=== PATIENT | female | born 2005 | race Caucasian/White ===

== ENCOUNTER → 2024-02-04 11:00 | Outpatient (BNVA) | payer BC, MEDICAID, SELFPAY | PROVIDERS: Family Provider Pediatrics Adolescent Medicine; PCP Pediatrics Adolescent Medicine; Visit Provider Nurse Practitioner Women's Health | DX: N92.6 Irregular menstruation, unspecified (principal) | CPT/HCPCS: 82728; 83550; 84439; 84443; 84466; 84481 ==

== ENCOUNTER → 2024-04-11 14:36 | Outpatient (BNVA) | payer BC, MEDICAID, SELFPAY | PROVIDERS: Family Provider Pediatrics Adolescent Medicine; PCP Pediatrics Adolescent Medicine; Visit Provider Nurse Practitioner Women's Health | DX: Z01.419 Encounter for gynecological examination (general) (routine) without abnormal findings (principal) | CPT/HCPCS: 88175 ==

== ENCOUNTER 2024-07-11 12:58 | Emergency (ER) | payer BC, MEDICAID, SELFPAY ==
[2024-07-11 13:04] VITALS: BP 111/71; PULSE 71; RESP 18; TEMP 36.4; O2SAT 97; BMI 16.9
--- NOTE | 2024-07-11 13:15 | ED_ITS ---
Documented by User: VALARIE Gomez 07/11/24 16:00 HPI - Headache 2 General: Chief Complaint: Headache Stated Complaint: headache Time Seen by Provider: 07/11/24 12:59 Source: patient Mode of arrival: ambulatory Limitations: no limitations History of Present Illness: Patient is a 19-year-old female presents to ED today with a complaint of a right sided headache and neck pain that she states initially started approximately a week ago. She states the day she had a headache it reached a maximum intensity of a 7/10. She states the days following this it seemed to ease off and reports over the last 5 days or so she would rated at a 3/10. She states pain never fully went away. She states yesterday and into today pain became severe again. At time of my examination she is rating it an 8/10. She states pain is centered around her right mormon and right retro-orbital region and extending down into the right side of her neck. She has not had any visual changes. She has not had any recent injury or trauma. No spinal manipulation. She has no history of migraine headaches. She was reportedly seen at the [facility] walk-in clinic and referred to the emergency department due to her stating this is the worst headache of her life. She does report some nausea and did have an episode of vomiting today. No fevers. MD elicited complaint: headache Onset (ago): day(s) Location: right, temporal and retro-orbital Severity: severe Pain scale (0-10): 8 Exacerbating factors: none Relieving factors: nothing Associated symptoms: Reports nausea; Deny chest pain, fever(s), lightheadedness, malaise, rash, syncope or vomiting Treatments prior to arrival: none Related Data Home Medications Medication Instructions Recorded Confirmed No Known Home Medications 02/04/24 07/11/24 Allergies Allergy/AdvReac Type Severity Reaction Status Date / Time No Known Allergies Allergy Verified 07/11/24 13:11 Review of Systems 2 Const: Denies: fever(s), chills, body aches, fatigue or malaise Eyes: Denies: change in vision, blurry vision, photophobia, floaters or seeing flashes Card: Denies: chest pain, palpitations, irregular heart rhythm, lightheadedness, syncope or dyspnea on exertion Resp: Denies: dyspnea, productive cough or pain on inspiration GI: Reports: nausea; Denies: abdominal pain, vomiting, heartburn or diarrhea : Denies: dysuria Musc: Reports: neck pain; Denies: back pain, extremity pain, extremity swelling, joint pain or joint swelling Skin/Breast: Denies: rash Neuro: Reports: headache(s); Denies: numbness in extremities, weakness in extremities, sensory changes or dizziness PFSH ED 2 PFSH: Family History Grandmother Breast cancer Maternal grandmother, breasts cancer, unknown type and living. Denies family history of Colon cancer Pancreatic cancer Ovarian cancer Diabetes Cancer Hypertension Uterine cancer Thyroid disease Stroke Social History Smoking and tobacco/nicotine status: unknown if used tobacco/nicotine Female Reproductive History: Date of last menstrual period: 06/16/24 Physical Exam 2 Const: COMMON NORMALS: patient oriented x3, no limitations, healthy appearing, alert and well nourished GENERAL APPEARANCE: cooperative and anxious (starting IV/states she doesn't like the sight of blood) NUTRITIONAL APPEARANCE: thin ORIENTATION/CONSCIOUSNESS: Yes awake, Yes oriented to person, Yes oriented to place and Yes oriented to time HENMT: COMMON NORMALS: normocephalic, atraumatic, hearing grossly normal bilaterally, external ears normal, EAC's normal and TM's normal bilaterally H EAD & SCALP: normal to inspection, normocephalic and atraumatic FACE & SINUS: normal facial exam, sinuses nontender and face symmetric EXTERNAL EAR: Yes external ears normal EXTERNAL AUDITORY CANAL: EAC's normal TYMPANIC MEMBRANE: TM's normal bilaterally Eye: COMMON NORMALS: Equal, round and reactive pupils present and EOMs intact bilaterally GENERAL EYE: appearance normal, both eyes and all related structures and normal light reflex PUPIL: Yes Equal, round and reactive pupils present DIRECT OPHTHALMOSCOPY: Yes normal light reflex Neck/C-Spine: COMMON NORMALS: no lymphadenopathy and no meningeal signs G ENERAL: Yes normal visual inspection CERVICAL SPINE: Yes pain with cervical ROM, No Cervical spine tenderness and No step off deformity OTHER: TTP R posterior neck; slight hesitancy with certain ROM movements Resp: COMMON NORMALS: normal respiratory effort and clear to auscultation bilaterally AUSCULTATION: clear to auscultation bilaterally Cardio: COMMON NORMALS: regular rate and regular rhythm RATE: regular rate RHYTHM: regular rhythm Neuro: ALICIA COMA SCALE: document GCS findings Alicia coma scale eye opening: Spontaneous Alicia coma scale verbal response: Orientated [place] coma scale motor response: Obey commands [place] coma scale total score: 15 COMMON NORMALS: patient oriented x3, CN's II-XII intact bilaterally, moves all extremities, no focal motor deficits, no sensory deficits noted and gait normal SENSORIUM/ORIENTATION: Yes alert, Yes oriented to person, Yes oriented to place and Yes oriented to time MENINGEAL SIGNS: Yes no meningeal signs Skin: COMMON NORMALS: no rashes or lesions noted GENERAL SKIN EXAM: no rashes or lesions noted Course 2 Vital Signs: Vital signs: Vital Signs Temperature 97.5 F L 07/11/24 13:04 Pulse Rate 88 07/11/24 15:27 Respiratory Rate 16 07/11/24 15:27 Blood Pressure 103/62 07/11/24 15:27 Pulse Oximetry 98 07/11/24 15:27 Oxygen Delivery Me thod Room Air 07/11/24 15:27 MDM - Headache Medical Decision Making Patient CT head is unremarkable. Patient CTA head/neck showing findings concerning for vertebral artery dissection. She also has an area of stenosis/high-grade occlusion involving the right M1 segment that is highly suspicious for thrombus. I spoke to [facility] neurology/Dr. Merida who is requesting patient be started on a heparin drip and transferred to their facility for cerebral arteriogram. Unfortunately ground transportation has been significantly delayed. Spoke to Dr. Rodríguez who recommended flight transfer. NIH of 0. Medical Records I reviewed the patient's medical records. Lab Data I reviewed the patient's lab results. 07/11/24 13:37 07/11/24 13:[address] 07/11/24 13:33 IMPRESSION: Negative head CT. Head/Neck CTA 07/11/24 13:35 IMPRESSION: 1. Very small caliber RIGHT vertebral artery. As the patient is experiencing neck pain. Vertebral artery dissection should be considered as a possibility. 2. Focal area of stenosis/high-grade occlusion involving the RIGHT M1 segment extending over a length of 6.7 mm is highly suspicious for thrombus. 3. Notified VALARIE Gomez at 07/11/2024 2:43 PM. Laboratory Results WBC 8.30 10^3/uL (3.29-11.43) 07/11/24 13:37 RBC 5.19 10^6/uL (3.85-5.65) 07/11/24 13:37 Hgb 13.90 g/dL (11.27-16.99) 07/11/24 13:37 Hct 43.2 % (36-47) 07/11/24 13:37 MCV 83.2 fl (85-98) L 07/11/24 13:37 MCH 26.8 pg (27-33) L 07/11/24 13:37 MCHC 32.2 g/dL (30-55) 07/11/24 13:37 RDW 13.5 % (12.1-15.1) 07/11/24 13:37 Plt Count 261 10^3/cmm (157-399) 07/11/24 13:37 MPV 9.1 fL (7.4-10.4) 07/11/24 13:37 Neut % (Auto) 77.3 % 07/11/24 13:37 Lymph % (Auto) 16.0 % 07/11/24 13:37 [place] % (Auto) 5.7 % 07/11/24 13:37 Eos % (Auto) 0.4 % 07/11/24 13:37 Baso % (Auto) 0.4 % 07/11/24 13:37 Neut # (Auto) 6.42 10^3/uL (1.8-7.7) 07/11/24 13:37 Lymph # (Auto) 1.3 10^3/uL (0.8-4.8) 07/11/24 13:37 [place] # (Auto) 0.5 10^3/uL (0.2-0.9) 07/11/24 13:37 Eos # (Auto) 0.0 10^3/uL (0.0-0.8) 07/11/24 13:37 Baso # (Auto) 0.0 10^3/uL (0.0-0.1) 07/11/24 13:37 Nucleated RBC % (auto) 0 % 07/11/24 13:37 Nucleated RBCs # 0.0 /100WBC 07/11/24 13:37 Sodium 138 mmol/L (136-145) 07/11/24 13:37 Potassium 4.3 mmol/L (3.5-5.1) 07/11/24 13:37 Chloride 101 mmol/L (98-107) 07/11/24 13:37 Carbon Dioxide 24 mmol/L (22-29) 07/11/24 13:37 Anion Gap 17.3 (5-19) 07/11/24 13:37 BUN 14 mg/dL (6-20) 07/11/24 13:37 Creatinine 0.6 mg/dL (0.5-0.9) 07/11/24 13:37 GFR Calculation 126.2 mL/min (90-130) 07/11/24 13:37 Glucose 97 mg/dL (65-115) 07/11/24 13:37 Calculated Osmolality 286 mOsm/kg (285-295) 07/11/24 13:37 Calcium 9.8 mg/dL (8.5-10.5) 07/11/24 13:37 Total Bilirubin 0.6 mg/dL (0.15-1.2) 07/11/24 13:37 AST 19 U/L (0-32) 07/11/24 13:37 ALT 14 U/L (0-33) 07/11/24 13:37 Alkaline Phosphatase 55 U/L (35-105) 07/11/24 13:37 Total Protein 8.4 g/dL (6.6-8.7) 07/11/24 13:37 Albumin 5.2 g/dL (3.5-5.2) 07/11/24 13:37 Globulin 3.2 g/dL (1.3-4.6) 07/11/24 13:37 HCG, Qual Negative (Negative) 07/11/24 13:37 All radiology interpretation(s) finalized by discharge Discharge Plan Discharge Patient Disposition: Xfer Short-Term Hosp Clinical Impression: 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 Qualifiers: Laterality: right Qualified Code(s): I66.01 - 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 Condition: Stable Referrals: Estephania Carrizales MD [Family Provider] - Coding Level of Care Code ED Spanish Interpreter/Translator for g Fwd NIH stroke score NIHSS Level Of Consciousness - 1a: 0 Level Of Consciousness Questions - 1b: Both Correct Level Of Consciousness Commands - 1c: Both Correct Best Gaze - 2: Normal Visual Oswald - 3: No Visual Loss Facial Palsy - 4: Normal Motor Arm Right - 5: No Drift Motor Arm Left - 5: No Drift Motor Leg Right - 6: No Drift Motor Leg Left - 6: No Drift Limb Ataxia - 7: Absent Sensory - 8: Normal Best Language - 9: No Aphasia Dysarthia - 10: Normal Extinction And Inattention - 11: 0 Score Total Score: 0 Documented by User: Jessica Rodríguez MD 07/11/24 16:16 HPI - Headache 2 General: Chief Complaint: Headache Stated Complaint: headache Time Seen by Provider: 07/11/24 12:59 Related Data Home Medications Medication Instructions Recorded Confirmed No Known Home Medications 02/04/24 07/11/24 Allergies Allergy/AdvReac Type Severity Reaction Status Date / Time No Known Allergies Allergy Verified 07/11/24 13:11 PFSH ED 2 PFSH: Family History Grandmother Breast cancer Maternal grandmother, breasts cancer, unknown type and living. Denies family history of Colon cancer Pancreatic cancer Ovarian cancer Diabetes Cancer Hypertension Uterine cancer Thyroid disease Stroke Social History Smoking and tobacco/nicotine status: unknown if used tobacco/nicotine Physical Exam 2 Neuro: ALICIA COMA SCALE: document GCS findings Alicia coma scale total score: 15 Course 2 Vital Signs: Vital signs: Vital Signs Temperature 97.5 F L 07/11/24 13:04 Pulse Rate 88 07/11/24 15:27 Respiratory Rate 16 07/11/24 15:27 Blood Pressure 103/62 07/11/24 15:27 Pulse Oximetry 98 07/11/24 15:27 Oxygen Delivery Me thod Room Air 07/11/24 15:27 MDM - Headache Medical Decision Making Patient CT head is unremarkable. Patient CTA head/neck showing findings concerning for vertebral artery dissection. She also has an area of stenosis/high-grade occlusion involving the right M1 segment that is highly suspicious for thrombus. I spoke to [facility] neurology/Dr. Merida who is requesting patient be started on a heparin drip and transferred to their facility for cerebral arteriogram. Unfortunately ground transportation has been significantly delayed. Spoke to Dr. Rodríguez who recommended flight transfer. NIH of 0. Soft patient with above caregiver agree with her history and physical will transfer to [facility] for higher level of care of neurology. Lab Data 07/11/24 13:37 07/11/24 13:[address] 07/11/24 13:33 IMPRESSION: Negative head CT. Head/Neck CTA 07/11/24 13:35 IMPRESSION: 1. Very small caliber RIGHT vertebral artery. As the patient is experiencing neck pain. Vertebral artery dissection should be considered as a possibility. 2. Focal area of stenosis/high-grade occlusion involving the RIGHT M1 segment extending over a length of 6.7 mm is highly suspicious for thrombus. 3. Notified VALARIE Gomez at 07/11/2024 2:43 PM. Laboratory Results WBC 8.30 10^3/uL (3.29-11.43) 07/11/24 13:37 RBC 5.19 10^6/uL (3.85-5.65) 07/11/24 13:37 Hgb 13.90 g/dL (11.27-16.99) 07/11/24 13:37 Hct 43.2 % (36-47) 07/11/24 13:37 MCV 83.2 fl (85-98) L 07/11/24 13:37 MCH 26.8 pg (27-33) L 07/11/24 13:37 MCHC 32.2 g/dL (30-55) 07/11/24 13:37 RDW 13.5 % (12.1-15.1) 07/11/24 13:37 Plt Count 261 10^3/cmm (157-399) 07/11/24 13:37 MPV 9.1 fL (7.4-10.4) 07/11/24 13:37 Neut % (Auto) 77.3 % 07/11/24 13:37 Lymph % (Auto) 16.0 % 07/11/24 13:37 [place] % (Auto) 5.7 % 07/11/24 13:37 Eos % (Auto) 0.4 % 07/11/24 13:37 Baso % (Auto) 0.4 % 07/11/24 13:37 Neut # (Auto) 6.42 10^3/uL (1.8-7.7) 07/11/24 13:37 Lymph # (Auto) 1.3 10^3/uL (0.8-4.8) 07/11/24 13:37 [place] # (Auto) 0.5 10^3/uL (0.2-0.9) 07/11/24 13:37 Eos # (Auto) 0.0 10^3/uL (0.0-0.8) 07/11/24 13:37 Baso # (Auto) 0.0 10^3/uL (0.0-0.1) 07/11/24 13:37 Nucleated RBC % (auto) 0 % 07/11/24 13:37 Nucleated RBCs # 0.0 /100WBC 07/11/24 13:37 Sodium 138 mmol/L (136-145) 07/11/24 13:37 Potassium 4.3 mmol/L (3.5-5.1) 07/11/24 13:37 Chloride 101 mmol/L (98-107) 07/11/24 13:37 Carbon Dioxide 24 mmol/L (22-29) 07/11/24 13:37 Anion Gap 17.3 (5-19) 07/11/24 13:37 BUN 14 mg/dL (6-20) 07/11/24 13:37 Creatinine 0.6 mg/dL (0.5-0.9) 07/11/24 13:37 GFR Calculation 126.2 mL/min (90-130) 07/11/24 13:37 Glucose 97 mg/dL (65-115) 07/11/24 13:37 Calculated Osmolality 286 mOsm/kg (285-295) 07/11/24 13:37 Calcium 9.8 mg/dL (8.5-10.5) 07/11/24 13:37 Total Bilirubin 0.6 mg/dL (0.15-1.2) 07/11/24 13:37 AST 19 U/L (0-32) 07/11/24 13:37 ALT 14 U/L (0-33) 07/11/24 13:37 Alkaline Phosphatase 55 U/L (35-105) 07/11/24 13:37 Total Protein 8.4 g/dL (6.6-8.7) 07/11/24 13:37 Albumin 5.2 g/dL (3.5-5.2) 07/11/24 13:37 Globulin 3.2 g/dL (1.3-4.6) 07/11/24 13:37 HCG, Qual Negative (Negative) 07/11/24 13:37 Critical Care Time 2 Critical Care Time: Critical Care Time: Yes Total Critical Care Time: 40 Attestation: The high probability of a clinically significant, sudden or life threatening deterioration of the patient's neuro system(s) required my full and direct attention, intervention and personal management. The critical care time is as shown. 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
--- NOTE | 2024-07-11 13:33 | CT_ITS ---
WS: [id number] CT HEAD NONCONTRAST HISTORY: R sided VAUGHN TECHNIQUE: Contiguous axial imaging performed through the brain in 2.5 mm imaging. Bone and soft tiss ue windows. Sagittal and coronal reformats reviewed. All CT scans at [facility] use at least one of these dose optimization techniques: automated exposure control; mA and/or kV adjustment per pa tient size (includes targeted exams where dose is matched to clinical indication); or iterative recon struction. DLP: 1323.58 mGy.cm COMPARISON: None available. No acute intracranial hemorrhage, midline shift or mass effect. No atrophy or prior infarcts or herniation. Ventricles: Normal size with no hydrocephalus. Paranasal sinuses: As visualized are clear. Mastoid air cells: Well pneumatized. Calvarium and scalp: Skull is intact with no soft tissue edema or swelling. CT/CT head wo con* [id number] IMPRESSION: Negative head CT.
--- NOTE | 2024-07-11 13:35 | CT_ITS ---
WS: [id number] CT ANGIOGRAM CEREBRAL AND CAROTID ARTERIES HISTORY: R neck/headache TECHNIQUE: CT angiogram is performed of the carotid and cerebral arteries. During arterial injection imaging is obtained from the skull vertex to the aortic arch in 1.25 mm imaging. Coronal and sagittal reformats are submitted. Additional multi planar reformats of the carotid and cerebral arteries are submitted, MIP imaging also reviewed. NASCET criteria utilized. [facility] at least one of these dose optimization techniques: automated exposure control; mA and/or kV adjust ment per patient size (includes targeted exams where dose is matched to clinical indication); or iter ative reconstruction. CONTRAST: Omnipaque 350; 100 mL IV. DLP: 1323.58 mGy.cm COMPARISON: None available. Carotid Angiogram: Right carotid: Common carotid artery: Arises normally from the innominate artery. No significant plaque or stenosis. Internal carotid artery: No plaque or stenosis. External carotid artery: Patent. Left carotid: Common carotid artery: Arises normally from the aorta. No significant plaque or stenosis. Internal carotid artery: No plaque or stenosis. External carotid artery: Patent. Right vertebral artery: Small caliber RIGHT vertebral artery. RIGHT vertebral artery is very small ca liber throughout its course. Only a single lumen is identified. With history of neck pain vertebral a rtery dissection should be considered. Left vertebral artery: Dominant LEFT vertebral artery arises directly from the arch. Subclavian arteries: No stenosis or significant abnormality. Upper thorax: Normal. Thyroid gland: Normal. Osseous structures: Unremarkable. CEREBRAL ANGIOGRAM: Intracranial vertebral arteries: Very small caliber distal RIGHT vertebral artery may be completely o ccluded distally. LEFT vertebral artery is markedly dominant. Basilar artery: No significant stenosis or occlusion. No aneurysm. Intracranial Internal carotid arteries: Demonstrates no significant stenosis or plaque. Middle cerebral arteries: There is a high-grade, near complete occlusion if not complete occlusion in volving the RIGHT M1 segment. Slight paucity of vessels distally. No aneurysm. LEFT middle cerebral a rtery appears appropriate. Anterior cerebral arteries and ACOM: Normal. Posterior cerebral arteries and PCOM's: Normal. Dural venous sinuses are normally enhancing. Mastoid air cells: Normal. Paranasal sinuses: Normal. Calvarium: Normal. CT/CT angio headneck* [id number] IMPRESSION: 1. Very small caliber RIGHT vertebral artery. As the patient is experiencing n maddie pain. Vertebral artery dissection should be considered as a possibility. 2. Focal area of stenosis/high-grade occlusion involving the RIGHT M1 segment extending over a length of 6.7 mm is highly suspicious for thrombus. 3. Notified VALARIE Gomez at 07/11/2024 2:43 PM.
[2024-07-11 13:44] LABS: Basophils % 0.4 %; Eosinophils % 0.4 %; Hematocrit 43.2 % (36-47); Lymphocytes # 1.3 10^3/uL (0.8-4.8); Mean Corpuscular HGB Conc 32.2 g/dL (30-55); Mean Corpuscular Hemoglobin 26.8 pg (27-33); Mean Corpuscular Volume 83.2 fl (85-98); Mean Platelet Volume 9.1 fL (7.4-10.4); Monocytes # 0.5 10^3/uL (0.2-0.9); Monocytes % 5.7 %; Neutrophils # 6.42 10^3/uL (1.8-7.7); Neutrophils % 77.3 %; Nucleated Red Blood Cells % 0 %; Platelet Count 261 10^3/cmm (157-399); Red Blood Count 5.19 10^6/uL (3.85-5.65); Red Cell Distribution Width 13.5 % (12.1-15.1)
[2024-07-11] MEDS: diphenhydrAMINE 50 mg/mL SDV 1mL 25 MG IVP (13:44)
[2024-07-11] MEDS: ondansetron 2 mg/ML SDV 2 mL 4 MG IVP (13:45)
[2024-07-11] MEDS: ketorolac 60 mg/2 mL INJ 15 MG IVP (13:45)
[2024-07-11] MEDS: dexamethasone 10 mg/mL INJ 4 MG IM (13:46)
[2024-07-11] MEDS: sodium chloride 0.9% 1,000 ML 999 ML IV (13:47)
[2024-07-11 14:00] LABS: HCG, Serum Qual Negative (Negative)
[2024-07-11 14:05] LABS: Alanine Aminotransferase 14 U/L (0-33); Albumin Level 5.2 g/dL (3.5-5.2); Alkaline Phosphatase 55 U/L (35-105); Anion Gap 17.3 (5-19); Aspartate Amino Transferase 19 U/L (0-32); Blood Urea Nitrogen 14 mg/dL (6-20); Calcium 9.8 mg/dL (8.5-10.5); Carbon Dioxide 24 mmol/L (22-29); Chloride 101 mmol/L (98-107); Creatinine Clr Calc Pharmacy 105.1445; Globulin 3.2 g/dL (1.3-4.6); Glomerular Filtration Rate 126.2 mL/min (90-130); Glucose 97 mg/dL (65-115); Osmolality Calculated 286 mOsm/kg (285-295); Potassium 4.3 mmol/L (3.5-5.1); Sodium 138 mmol/L (136-145); Total Bilirubin 0.6 mg/dL (0.15-1.2); Total Protein 8.4 g/dL (6.6-8.7)
[2024-07-11 14:11] VITALS: BP 121/80; RESP 16
[2024-07-11] MEDS: iohexol 350 mg/mL 500 mL Btl (per mL) IV (14:28)
[2024-07-11 15:27] VITALS: BP 103/62; PULSE 88; RESP 16; O2SAT 98
[2024-07-11] MEDS: heparin drip 25,000 UNIT/500 ML PREMIX 10.78 UNIT IV (16:11)
[2024-07-11 16:16] VITALS: BP 106/57; PULSE 83; RESP 16; O2SAT 100
--- NOTE | 2024-07-11 16:55 | PC.NURSE ---
report called to jeremias mathew at [facility] neurology. report given to isreal oliva rn air evac
--- NOTE | 2024-07-11 16:58 | PC.NURSE ---
patient transferred to air evac care at 1658. patient left with air evac 1658.
== END 2024-07-11 17:02 | disposition short-term general hospital (02) ==
PROVIDERS: Emergency Provider Physician Assistant; Family Provider Pediatrics Adolescent Medicine
DX: I66.01 Occlusion and stenosis of right middle cerebral artery (principal); I77.74 Dissection of vertebral artery
CPT/HCPCS: 70450; 70496; 70498; 80053; 84703; 85025; 96372; 96374; 96375; 99285; J1100; J1200; J1644; J1885; J2405; J7030; Q9967

== ENCOUNTER → 2025-03-04 15:10 | Outpatient (BNVA) | payer BC, MEDICAID, SELFPAY | PROVIDERS: Family Provider Pediatrics Adolescent Medicine; Visit Provider Nurse Practitioner Women's Health | DX: N91.2 Amenorrhea, unspecified (principal); Z32.01 Encounter for pregnancy test, result positive; Z36.87 Encounter for antenatal screening for uncertain dates | CPT/HCPCS: 76801; 81025; 84702; 86850; 86900 ==

== ENCOUNTER → 2025-04-08 08:04 | Outpatient (BNVA) | payer BC, MEDICAID, SELFPAY | PROVIDERS: Family Provider Pediatrics Adolescent Medicine; Visit Provider Nurse Practitioner Women's Health | DX: Z34.90 Encounter for supervision of normal pregnancy, unspecified, unspecified trimester (principal) | CPT/HCPCS: 80053; 80307; 84315; 84443; 85025; 86592; 86762; 86803; 87086; 87340; 87491; 87591; 87661; 87806 ==

== ENCOUNTER → 2025-04-16 09:19 | Outpatient (BNVA) | payer BC, MEDICAID, SELFPAY | PROVIDERS: Family Provider Pediatrics Adolescent Medicine; Visit Provider Obstetrics & Gynecology | DX: Z34.90 Encounter for supervision of normal pregnancy, unspecified, unspecified trimester (principal) | CPT/HCPCS: 84315 ==

== ENCOUNTER → 2025-04-23 09:38 | Outpatient (BNVA) | payer BC, MEDICAID, SELFPAY | PROVIDERS: Family Provider Pediatrics Adolescent Medicine; Visit Provider Nurse Practitioner Women's Health | DX: Z34.90 Encounter for supervision of normal pregnancy, unspecified, unspecified trimester (principal) | CPT/HCPCS: 84315 ==

== ENCOUNTER → 2025-05-22 14:03 | Outpatient (BNVA) | payer BC, MEDICAID, SELFPAY | PROVIDERS: Family Provider Pediatrics Adolescent Medicine; Visit Provider Nurse Practitioner Women's Health | DX: R30.0 Dysuria (principal) | CPT/HCPCS: 81000; 87086 ==

== ENCOUNTER → 2025-05-25 15:11 | Outpatient (BNVA) | payer BC, MEDICAID, SELFPAY | PROVIDERS: Family Provider Pediatrics Adolescent Medicine; Visit Provider Nurse Practitioner Women's Health | DX: N39.0 Urinary tract infection, site not specified (principal) | CPT/HCPCS: 81000 ==

== ENCOUNTER → 2025-05-27 09:27 | Outpatient (BNVA) | payer BC, MEDICAID, SELFPAY | PROVIDERS: Family Provider Pediatrics Adolescent Medicine; Visit Provider Obstetrics & Gynecology | DX: Z34.92 Encounter for supervision of normal pregnancy, unspecified, second trimester (principal); Z3A.21 21 weeks gestation of pregnancy | CPT/HCPCS: 76805 ==

== ENCOUNTER → 2025-06-03 10:46 | Outpatient (BNVA) | payer BC, MEDICAID, SELFPAY | PROVIDERS: Family Provider Pediatrics Adolescent Medicine; Visit Provider Obstetrics & Gynecology | DX: Z34.90 Encounter for supervision of normal pregnancy, unspecified, unspecified trimester (principal) | CPT/HCPCS: 84315 ==

== ENCOUNTER → 2025-07-01 09:10 | Outpatient (BNVA) | payer BC, MEDICAID, SELFPAY | PROVIDERS: Family Provider Pediatrics Adolescent Medicine; Visit Provider Nurse Practitioner Women's Health | DX: Z34.90 Encounter for supervision of normal pregnancy, unspecified, unspecified trimester (principal); O99.891 Other specified diseases and conditions complicating pregnancy; R82.71 Bacteriuria | CPT/HCPCS: 84315; 87086 ==

== ENCOUNTER → 2025-07-16 15:41 | Outpatient (BNVA) | payer MEDICAID, SELFPAY | PROVIDERS: Family Provider Pediatrics Adolescent Medicine; Visit Provider Obstetrics & Gynecology | DX: Z34.90 Encounter for supervision of normal pregnancy, unspecified, unspecified trimester (principal) | CPT/HCPCS: 82950; 84315; 85025 ==

== ENCOUNTER → 2025-07-21 07:55 | Outpatient (BNVA) | payer MEDICAID, SELFPAY | PROVIDERS: Family Provider Pediatrics Adolescent Medicine; Visit Provider Obstetrics & Gynecology | DX: Z34.90 Encounter for supervision of normal pregnancy, unspecified, unspecified trimester (principal) | CPT/HCPCS: 82951; 82952 ==

== ENCOUNTER → 2025-07-29 13:52 | Outpatient (BNVA) | payer MEDICAID, SELFPAY | PROVIDERS: Family Provider Pediatrics Adolescent Medicine; Visit Provider Nurse Practitioner Women's Health | DX: Z34.90 Encounter for supervision of normal pregnancy, unspecified, unspecified trimester (principal) | CPT/HCPCS: 84315 ==

== ENCOUNTER → 2025-08-13 15:27 | Outpatient (BNVA) | payer BC, MEDICAID, SELFPAY | PROVIDERS: Family Provider Pediatrics Adolescent Medicine; Visit Provider Obstetrics & Gynecology | DX: O24.410 Gestational diabetes mellitus in pregnancy, diet controlled (principal) | CPT/HCPCS: 84315 ==

== ENCOUNTER → 2025-08-27 14:41 | Outpatient (BNVA) | payer BC, MEDICAID, SELFPAY | PROVIDERS: Family Provider Pediatrics Adolescent Medicine; Visit Provider Nurse Practitioner Women's Health | DX: Z01.419 Encounter for gynecological examination (general) (routine) without abnormal findings (principal); O24.410 Gestational diabetes mellitus in pregnancy, diet controlled | CPT/HCPCS: 84315; 85025 ==

== ENCOUNTER 2025-08-28 09:44 | Outpatient (CLI) | payer BC, MEDICAID, SELFPAY ==
--- NOTE | 2025-08-28 09:45 | USR_ITS ---
PROCEDURE INFORMATION: Exam: US , Follow up Exam date and time: 08/28/2025 10:08 AM Age: 20 years old Clinical indication: Screening exam; Routine US, uterus; Additional info: Z34.90 - encounter for supervision of normal , u. . . , / LABS AND CLINICAL REPORTS: Gestational age (Established): 35 w 6 d Estimated due date (Established): 09/26/2025 TECHNIQUE: Imaging protocol: Transabdominal ultrasound of the uterus, real time with image documentation. Follow-up (eg, re-evaluation of size by measuring standard growth parameters and amniotic fluid volume, re-evaluation of organ system(s) suspected or confirmed to be abnormal on a previous scan). COMPARISON: US OB >= 14 weeks fetus [id number] 05/27/2025 9:45 AM FINDINGS: Gestation: Single live intrauterine gestation. heart rate: 130 bpm presentation and position: Cephalic presentation. Placenta: The placenta is posterior in location without evidence of placenta previa. BIOMETRY: Estimated weight: 2640.46 g. EFW by AC, BPD, FL, HC, [place] 1985, 34.4% Biparietal diameter (BPD): 8.81 cm. EGA (BPD) is 35 w 4 d. 50.1 % percentile Head circumference (HC): 30.97 cm. EGA (HC) is 34 w 4 d. 4.1 % percentile Abdominal circumference (AC): 31.35 cm. EGA (AC) is 35 w 2 d. 42.7 % percentile Femur length (FL): 6.91 cm. EGA (FL) is 35 w 3 d. 34.5 % percentile HC/AC: 0.99. (Normal range: 0.93 - 1.1) FL/HC: 22.31. (Normal range: 20.1 - 22.24) FL/BPD: 78.43. (Normal range: 71 - 87) FL/AC: 22.04. (Normal range: 20 - 24) MATERNAL: Cervix: Cervical length measures 5.2 cm. [place] [id number] IMPRESSION: Unremarkable limited exam with mean sonographic age of 35 weeks 2 days. There has been appropriate interval growth since the prior study.
== END 2025-08-28 09:45 | disposition home or self-care (01) ==
LOC: RAD 09:47
PROVIDERS: Family Provider Pediatrics Adolescent Medicine; PCP Obstetrics & Gynecology; Visit Provider Obstetrics & Gynecology
DX: Z34.93 Encounter for supervision of normal pregnancy, unspecified, third trimester (principal); Z3A.35 35 weeks gestation of pregnancy
CPT/HCPCS: 76816

== ENCOUNTER 2025-08-28 10:39 | Outpatient (CLI) | payer BC, MEDICAID, SELFPAY ==
[2025-08-28] VITALS (26 sets, daily range): BP systolic 69–105; BP diastolic 45–70; PULSE 87–136; RESP 17; O2SAT 97–100; BMI 19.9
== END 2025-08-28 12:52 | disposition home or self-care (01) ==
LOC: OPOB 10:40 → OBGYN 10:41
PROVIDERS: Family Provider Pediatrics Adolescent Medicine; PCP Obstetrics & Gynecology; Visit Provider Obstetrics & Gynecology
DX: O26.899 Other specified pregnancy related conditions, unspecified trimester (principal); Z3A.00 Weeks of gestation of pregnancy not specified; R55 Syncope and collapse
CPT/HCPCS: 36416; 59025; 82962; 99211; J7120

== ENCOUNTER → 2025-09-09 13:10 | Outpatient (BNVA) | payer BC, MEDICAID, SELFPAY | PROVIDERS: Family Provider Pediatrics Adolescent Medicine; Visit Provider Obstetrics & Gynecology | DX: O24.410 Gestational diabetes mellitus in pregnancy, diet controlled (principal) | CPT/HCPCS: 84315 ==

== ENCOUNTER → 2025-09-16 15:00 | Outpatient (BNVA) | payer BC, MEDICAID, SELFPAY | PROVIDERS: Family Provider Pediatrics Adolescent Medicine; Visit Provider Nurse Practitioner Women's Health | DX: Z34.93 Encounter for supervision of normal pregnancy, unspecified, third trimester (principal); Z3A.32 32 weeks gestation of pregnancy | CPT/HCPCS: 81000 ==

== ENCOUNTER → 2025-09-23 13:29 | Outpatient (BNVA) | payer BC, MEDICAID, SELFPAY | PROVIDERS: Family Provider Pediatrics Adolescent Medicine; Visit Provider Obstetrics & Gynecology | DX: O24.410 Gestational diabetes mellitus in pregnancy, diet controlled (principal) | CPT/HCPCS: 84315 ==

== ENCOUNTER → 2025-10-01 14:50 | Outpatient (BNVA) | payer BC, MEDICAID, SELFPAY | PROVIDERS: Family Provider Pediatrics Adolescent Medicine; Visit Provider Obstetrics & Gynecology | DX: O24.410 Gestational diabetes mellitus in pregnancy, diet controlled (principal); Z3A.39 39 weeks gestation of pregnancy | CPT/HCPCS: 84315 ==

== ENCOUNTER 2025-10-11 04:28 | Inpatient (IN) | payer BC, MEDICAID, SELFPAY ==
[2025-10-11] VITALS (77 sets, daily range): BP systolic 89–160; BP diastolic 52–90; PULSE 74–214; RESP 17; TEMP 35.8–37.3; O2SAT 99–100; BMI 22.1
[2025-10-11 04:59] LABS: Hematocrit 41.5 % (36-47); Hemoglobin 13.80 g/dL (11.27-16.99); Mean Corpuscular HGB Conc 33.3 g/dL (30-55); Mean Corpuscular Hemoglobin 27.4 pg (27-33); Mean Corpuscular Volume 82.3 fl (85-98); Nucleated Red Blood Cells % 0 %; Platelet Count 246 10^3/cmm (157-399); Red Blood Count 5.04 10^6/uL (3.85-5.65); White Blood Count 10.67 10^3/uL (3.29-11.43)
[2025-10-11] MEDS: ondansetron 2 mg/ML SDV 2 mL 4 MG IVP (05:28)
[2025-10-11] MEDS: ROPivacaine premix 200 MG/100 ML PREMIX 10 MG EPIDURAL ×2 (06:56→14:42)
--- NOTE | 2025-10-11 07:04 | ANES.PREANE2 ---
Pre-Anesthetic Assessment Height/Weight: Height 1.63 m Weight 58.513 kg Temp Pulse Resp BP Pulse Ox O2 Del Method 96.4 F L 95 17 108/72 99 Room Air 10/11/25 04:01 10/11/25 07:02 10/11/25 03:55 10/11/25 07:02 10/11/25 06:59 10/11/25 05:09 Preop Diagnosis: intrauterine labor epidural Familial anesthetic complications: Pt's dad has had issues with anesthesia but patient does not know any details about what happened. Pt states she had general anesthesia with her angiogram and did well but she does not know if this was only propofol or if she received gas. Was Beta Armen taken within 24 hours: N/A Was Clonidine taken within 24 hours: N/A Social No alcohol and No tobacco Exam alert, oriented x 3 and clear to auscultation bilaterally Airway Mallampati: Class II Dentition: full History/ROS No significant history except as noted Pulmonary None reported CV/HEM vertebral artery stenosis None reported Hepatic None reported GI None reported Metabolic None reported Musc/skel None reported Neuropsych None reported Anesthetic Plan ASA status: 2 Anesthesia: Anesthesia Evaluation and Regional (specify below) Risk of > 500 ml blood loss (7ml/kg in children): Yes, adequate IV access and fluids planned Medications/Allergies Home Medications ?Medication ?Instructions ?Recorded ?Confirmed ?Last Taken ?Type blood-glucose sensor (Dexcom G6 #3 ea 07/29/25 10/01/25 Unknown Rx Sensor device) blood-glucose transmitter (Dexcom #1 ea 07/29/25 10/01/25 Unknown Rx G6 Transmitter device) blood-glucose,rn cardiac cath,cont #1 ea 07/29/25 10/01/25 Unknown Rx (Dexcom G6 Senior Military Analyst) blood-glucose meter (Blood Glucose #1 ea 08/06/25 10/01/25 Unknown Rx Monitoring kit) Trudy Pizano 27 mg PO DAILY 08/13/25 10/11/25 10/10/25 History magnesium glycinate 160 mg PO DAILY 08/13/25 10/11/25 10/10/25 History Trudy Pizano Liquid Iron 15 ml PO DAILY 09/09/25 10/11/25 10/10/25 History Allergies Allergy/AdvReac Type Severity Reaction Status Date / Time No Known Allergies Allergy Verified 10/11/25 03:54 Current Medications Generic Name Dose Route Start Last Admin Trade Name Freq PRN Reason Stop Dose Admin Sodium Chloride 1,000 mls @ 999 mls/hr 10/11/25 05:25 10/11/25 06:41 Sodium Chloride 0.9% IV 999 mls/hr .Q1H1M PRN Administration See label comments Ondansetron HCl 4 mg 10/11/25 04:27 10/11/25 05:28 Ondansetron 2 Mg/Ml Sdv 2 Ml IVP 4 mg Q4H PRN Administration NAUSEA AND VOMITING PFSH Anesthesia Medical History No pertinent past medical history neghx: htn,dm,thryoid,dvt/pe PCP: None Surgical History No pertinent past surgical history Family History Grandmother Breast cancer Maternal grandmother, breasts cancer, unknown type and living. Denies family history of Colon cancer Pancreatic cancer Ovarian cancer Diabetes Cancer Hypertension Uterine cancer Thyroid disease Stroke Social History Smoking and tobacco/nicotine status: never used tobacco/nicotine Female Reproductive History : 1 Data Anesthesia 10/11/25 04:50 Short CBC 10/11/25 Range/Units 04:50 WBC 10.67 (3.29-11.43) 10^3/uL Hgb 13.80 (11.27-16.99) g/dL Hct 41.5 (36-47) % MCV 82.3 L (85-98) fl Plt Count 246 (157-399) 10^3/cmm Neut % (Auto) 79.3 % Neut # (Auto) 8.47 H (1.8-7.7) 10^3/uL Blood Bank 10/11/25 10/11/25 04:50 05:35 Blood Type Cancelled A Positive Rho(D) Type Cancelled Rh positive Antibody Screen Cancelled Negative Anesthesia Procedures Epidural Time Out Performed: Yes Consents Signed: Procedure Consent Consent: requested by attending/covering physician, from patient, risks and benefits reviewed and patient agrees to proceed Lumbar Level: L4-L5 Epidural position: sitting Epidural procedure: sterile prep of area, 1% lidocaine to numb the area, 18 g needle, negative for paresthesia passed, neg for paresthesia, test dose given, 1.5% xylocaine 1:200k epi, 0.2% Ropivacaine bolus ml (5), placed PCEA, no systemic response, sterile dressing applied, L.U.D. no apparent complications and 0.2% Ropiavacaine @ mls/hr (10) Additional Comments: JEF 5.5 cm, catheter easily threaded to 11cm. VS monitored throughout and remained stable. Pt educated on HEEL CASER and reports adequate pain relief with epidural
--- NOTE | 2025-10-11 09:14 | PM.OBGYHP ---
Providers/Chief Complaint Admitting Physician: Zahraa KEMP Primary GRAIN ORIGINATION SPECIALIST: Gurmeet Chief Complaint: CONTRACTIONS HPI GRAIN ORIGINATION SPECIALIST History of Present Illness Date & Time: 2025-10-11 Patient Name: Prerna Charles : 2005 MRN: Author / Clinician: Frankie Vital MD ? GRAIN ORIGINATION SPECIALIST History Chief Complaint Regular uterine contractions at term. History of Present Illness Prerna Charles is a 20-year-old at 40 weeks 6 days by last normal menstrual period (LMP 01/18/2025) who presents to Labor & Delivery with regular contractions. GDM A1. She reports normal daily movements. A recent non-stress test was reactive with a normal baseline, moderate variability, and no decelerations. She has normal vital signs on admission (blood pressure and temperature within normal limits). Blood type is A positive with a negative antibody screen. Group B Streptococcus (GBS) status is unknown; the patient declines prophylactic antibiotics. She had previously been scheduled for induction at 30 weeks but declined. Recent laboratory work shows hemoglobin 13.8 g/dL and hematocrit 41.5%. Negative genetic screening. Past History Medical: Occlusion/stenosis of the right vertebral artery; history of syncope (followed by [facility]) Gynecologic: Denies history of STDs Medications: Not discussed Allergies: No known drug allergies (NKDA) Social & Family History Social: Not discussed Family: Not discussed Review of Systems Positive for regular contractions. Positive for normal movement. No other systems reviewed during today?s encounter. Physical Examination 1-2cm/70/-3/vx/IM Height: 5 ft 4 in Weight: 129 lb BMI: 22.1 General Appearance: Alert, in no acute distress Problem #1: Term in labor Assessment: Patient at 40 + 6 weeks GA with regular contractions and reactive NST; vital signs normal. Plan: Problem #2: Gestational diabetes mellitus (GDMA1) - Monitor maternal blood glucose every 2-4 hours during labor or as per hosp protocol. - Maintain euglycemia with oral intake or intravenous fluids as appropriate; do not initiate insulin unless hyperglycemia develops. - Continue monitoring per standard protocols for term labor. - Initiate glucose monitoring and arrange for follow-up to assess for persistent dysglycemia. Problem #3: Right vertebral artery stenosis with history of syncope Assessment: Chronic condition, currently stable; patient followed by [facility]. Problem #4: Unknown GBS status ? patient declines prophylaxis Assessment: GBS colonization status unknown; patient declines antibiotic prophylaxis. Present Details : 1 Para: 0 Labs Rubella: Immune RPR: Negative GBS: Unknown Medications/Allergies Home Medications ?Medication ?Instructions ?Recorded ?Confirmed ?Last Taken ?Type blood-glucose sensor (Dexcom G6 #3 ea 07/29/25 10/01/25 Unknown Rx Sensor device) blood-glucose transmitter (Dexcom #1 ea 07/29/25 10/01/25 Unknown Rx G6 Transmitter device) blood-glucose,oracle pl sql developer,cont #1 ea 07/29/25 10/01/25 Unknown Rx (Dexcom G6 Receiving Room Clerk) blood-glucose meter (Blood Glucose #1 ea 08/06/25 10/01/25 Unknown Rx Monitoring kit) Trudy Pizano 27 mg PO DAILY 08/13/25 10/11/25 10/10/25 History magnesium glycinate 160 mg PO DAILY 08/13/25 10/11/25 10/10/25 History Trudy Pizano Liquid Iron 15 ml PO DAILY 09/09/25 10/11/25 10/10/25 History Allergies Allergy/AdvReac Type Severity Reaction Status Date / Time No Known Allergies Allergy Verified 10/11/25 03:54 PFSH GRAIN ORIGINATION SPECIALIST PFSH: Medical History (Updated 10/11/25 @ 09:55 by Frankie Vital MD) No pertinent past medical history neghx: htn,dm,thryoid,dvt/pe PCP: None Surgical History No pertinent past surgical history Family History Grandmother Breast cancer Maternal grandmother, breasts cancer, unknown type and living. Denies family history of Colon cancer Pancreatic cancer Ovarian cancer Diabetes Cancer Hypertension Uterine cancer Thyroid disease Stroke Social History Smoking and tobacco/nicotine status: never used tobacco/nicotine History History History 1 Term 0 0 Miscarriages/Ectopic 0 Living Children 0 Care ANAND Calculator Estimated Delivery Date Method Current WG Current Estimate 10/05/25 LMP (Certain) 40w 6d Other Estimates 10/07/25 Ultrasound #1 40w 4d Specific Issues/Plans VERTEBRAL ARTERY STENOSIS SYNCOPE EPISODES PRE- BMI 16.5% GESTATIONAL DIABETES ANEMIA Vitals/I&O/Wt Last Vital Signs Temp 96.4 F L 10/11/25 04:01 Pulse 82 10/11/25 08:59 Resp 17 10/11/25 03:55 BP 107/67 10/11/25 08:59 Pulse Ox 100 10/11/25 07:39 O2 Del Method Room Air 10/11/25 05:09 10/10/25 10/11/25 10/11/25 22:59 06:59 14:59 Intake Total 1000 / 1000 Balance 1000 / 1000 Weight last 48 hrs Weight 129 lb Data 10/11/25 04:50 Results Labs OB ([facility]): Obstetrics US 08/28/25 Blood Type A Positive Today Antibody Screen Negative Today Hct, (36-47) 41.5 % Today Hgb, (11.27-16.99) 13.80 g/dL Today Rho(D) Type Rh positive Today Plt Count, (157-399) 246 10^3/cmm Today Hep Bs Antigen, (Nonreactive) Non-reactive 04/08/25 Hepatitis C Antibody, (Nonreactive) Non-reactive 04/08/25 Rubella IgG Antibody, (0.0-10.0) 481.6 IU/mL H 04/08/25 RPR, (Nonreactive) Nonreactive 04/08/25 HIV 1&2 Ab & HIV 1 Ag, (Non-Reactiv) Non-reactive 04/08/25 TSH, (0.27-4.20) 0.58 uIU/mL 04/08/25 Free T4, (0.82-1.77) 1.21 ng/dL 02/04/24 Glucose 1 Hr 50 gm, (85-140) 152 mg/dL H 07/16/25 Gest Glucose Tolerance mg/dL 07/21/25 Ser , Semi-Qnt 770388.00 mIU/mL 03/04/25 HCG, Qual, (Negative) Positive H 03/04/25 Urine Opiates Screen, (Negative) Negative ng/mL 04/08/25 Ur Barbiturates Screen, (Negative) Negative ng/mL 04/08/25 Ur Phencyclidine Scrn, (Negative) Negative ng/mL 04/08/25 Ur Amphetamines Screen, (Negative) Negative ng/mL 04/08/25 U Benzodiazepines Scrn, (Negative) Negative ng/mL 04/08/25 Urine Cocaine Screen, (Negative) Negative ng/mL 04/08/25 U Marijuana (THC) Screen, (Negative) Negative ng/mL 04/08/25 Micro Urine Specimen 07/01/25 Pap Smear Interpret See note 04/11/24 A&P Assessment and plan 1. Diet controlled gestational diabetes mellitus (GDM) in third trimester: 2. Vertebral artery stenosis: 3. Uterine contractions during : 4. Third trimester : Plan: Assessment & Plan 20-year-old GDMA1 at 40 weeks 6 days presenting in spontaneous labor with regular contractions. Blood type A+, negative antibody screen. Unknown GBS status; patient declines prophylaxis. Past medical history notable for right vertebral artery stenosis and syncope (managed by neurology). Hemoglobin 13.8 g/dL, hematocrit 41.5%. Negative genetic screen. Admit in anticipation of . PDMP PDMP Reviewed: Not Reviewed Attestations Medical Necessity Statement*: Patient will need hospitalization for labor at term Coding Level of Care Code Acute Code for Chg Fwd Diagnoses Diet controlled gestational diabetes mellitus (GDM) in third trimester O24.410 Gestational diabetes mellitus control: diet-controlled Trimester: third trimester Vertebral artery stenosis I65.09 Uterine contractions during O47.9 Third trimester Z34.93
[2025-10-11] MEDS: oxytocin 30 UNIT/500 ML BAG 600 UNIT IV (22:24)
--- NOTE | 2025-10-11 23:25 | PM.DELIVERY ---
Delivery Note: Date of delivery: October 11, 2025 Pre-delivery diagnoses: 40w Term in labor. GDMA1 Post-delivery diagnoses: GDMA1 40w Term delivered Shoulder dystocia Procedure: Operative delivery with Kiwi Vac one pull, succesful Op report anesthesia: Epidural Delivering Physician: Zahraa Estimated blood loss (mL): 300 Findings: BB Delivery: Patient is a 20year-old , admitted at 40w6d gestation for due to spontaneous labor. Cervix was 3cm dilated, 80% effaced, and head at -3 station upon admission. Patient refused GBS testing. Labor progressed well, with cervical dilation reaching 10 cm and the head descending to +2 station. Patient received an epidural early in labor.. After pushing for 3 hours and with reassuring heart rate tracing, the head with moderate caput was delivered with the use of the kiwi vacuum to help with the pushing efforts with just one pull. The head was delivered and the kiwi removed. There was shoulder dystocia that necessitated the anterior shoulder to be swept with my right hand allowing the rest of the body to follow without difficulty. The baby is a healthy male,8lb 12onz with scores of 8 at 1 minute and 8 at 5 minutes. The placenta was delivered spontaneously and intact after one minute of delayed cord clamping. IV pitocin per protocol with good uterine tone . Estimated blood loss was 300 mL. The patient tolerated the procedure well and is currently stable in the recovery room. Two 2nd degree lacerations were sutured with 3-0 vicryl with good hemostasis. There was a third degree 3B tear which was also repaired with 3-0 vicryl. Rectal exam after repair was normal. Pelvic exam, clots removed manually and minimal bleeding noted. Skin to skin. History History History 1 Term 0 0 Miscarriages/Ectopic 0 Living Children 0 A&P PDMP PDMP Reviewed: Not Reviewed Coding Level of Care Code Acute Code for Chg Fwd
[2025-10-12] VITALS (16 sets, daily range): BP systolic 104–147; BP diastolic 59–97; PULSE 68–118; RESP 15–16; TEMP 36.6–37; O2SAT 97
[2025-10-12] MEDS: benzocaine-menthol 78 gm Canister 1 SPRAY TOPICAL (02:20)
[2025-10-12] MEDS: ceFOXitin 2,000 mg SDV 2000 MG IVP (02:20)
[2025-10-12 11:26] LABS: Hematocrit 27.9 % (36-47); Hemoglobin 9.20 g/dL (11.27-16.99); Mean Corpuscular HGB Conc 33.0 g/dL (30-55); Mean Corpuscular Hemoglobin 28.0 pg (27-33); Mean Corpuscular Volume 84.8 fl (85-98); Platelet Count 202 10^3/cmm (157-399); Red Blood Count 3.29 10^6/uL (3.85-5.65); White Blood Count 17.65 10^3/uL (3.29-11.43)
--- NOTE | 2025-10-12 12:09 | ANE.PACU2 ---
Inpatient post-anesthesia follow up: Airway intact: Yes Vital signs: Temperature 98.4 F Pulse Rate 83 Respiratory Rate 15 Blood Pressure 106/71 Pulse Oximetry 99 Oxygen Delivery Me thod Room Air Oxygen Flow Rate Fraction of Inspir ed Oxygen Hydration adequate: Yes Nausea and vomiting: No Pain level: 1 Mental status: Baseline Epidural Start/End: Epidural Start Date: 10/11/25 Epidural Start Time: 06:58 Epidural End Date: 10/12/25 Epidural End Time: 03:04
--- NOTE | 2025-10-12 22:07 | PM.OBGYPN ---
WEIGHT LOSS PHYSICIAN Subjective Subjective: Interval history: Date & Time: 2025-10-13 Patient Name: : MRN: Author / Clinician: Frankie Vital MD (WEIGHT LOSS PHYSICIAN) Subjective Chief Complaint: ?Post- day one after vaginal delivery.? History of Present Illness: Patient is post- day #1 following a normal spontaneous vaginal delivery that was complicated by a third-degree(3b) perineal laceration/repair. She reports decreasing perineal pain, is tolerating a regular diet, able to void without difficulty, and is ambulating out of bed independently. No symptoms of depression noted. Review of Systems: ? General: Denies fever; feels well overall. ? : Able to void without difficulty. ? GI: Tolerating regular diet. ? Musculoskeletal: Ambulates independently without assistance. ? Psychiatric: No signs or feelings of depression. Objective Vital Signs Measure Value Blood Pressure 110/75 mmHg Temperature Afebrile Physical Exam: General: Awake, alert, ambulating without assistance. Perineum: Third-degree laceration repair not bleeding or infected Normal lochia noted. Overall exam otherwise within normal limits. Laboratory data relevant PP: Hemoglobin 9.2 g/dL, Hematocrit 27.9%, Platelets 202 K. Labor: Station: +2 Amniotic Membrane Status: Ruptured Monitor Mode: External Contraction Pattern: Regular Vitals/I&O/Wt Last Vital Signs Temp 98.6 F 10/12/25 20:36 Pulse 92 10/12/25 20:36 Resp 16 10/12/25 20:36 BP 110/75 10/12/25 20:36 Pulse Ox 97 10/12/25 20:36 O2 Del Method Room Air 10/12/25 20:36 10/12/25 10/12/25 10/12/25 06:59 14:59 22:59 Intake Total 1100 / 2200 Balance 1100 / 2200 Weight last 48 hrs Weight 129 lb Physical Exam Urinary Catheter Management: Damian Latex: Cath Placed During This Visit: yes, but has since been removed by the nurse Reason for Continuing Indwelling Catheter: Decision to DC Catheter Urinary Catheter Date of Insertion: 10/11/25 Urinary Catheter Time of Insertion: 07:50 Date Urinary Catheter Removed: 10/11/25 Time Urinary Catheter Discontinued: 18:49 Data 10/12/25 11:19 A&P Assessment and plan 1. , delivered: 2. dystocia: 3. Vacuum extractor delivery, delivered: 4. Third degree laceration of perineum, type 3b: Plan: Assessment & Plan Post- day #1 following with third-degree perineal laceration/repair. Patient clinically stable with improving perineal pain, ambulating, afebrile, and tolerating diet. Labs notable for expected mild post- anemia. Problem #1: Routine post- care ? day #1 s/p with 3? perineal(3b) laceration/repair Assessment: Stable post- course; vitals normal; normal growth; mild post- anemia. Plan: - Continue routine post- monitoring and care. - Provide standard post- discharge instructions. - Anticipate discharge home tomorrow. PDMP PDMP Reviewed: Not Reviewed Attestations Medical Necessity Statement*: post recovery Coding Level of Care Code Acute Code for Chg Fwd Diagnoses , delivered O80 dystocia O66.9 Vacuum extractor delivery, delivered O75.9 Third degree laceration of perineum, type 3b O70.22
[2025-10-13 04:58] VITALS: BP 108/74; PULSE 84; RESP 16; TEMP 36.8; O2SAT 97
[2025-10-13 09:32] VITALS: BP 100/64; PULSE 109; RESP 16; TEMP 36.6; TEMP 36.7; O2SAT 99
[2025-10-13 15:29] VITALS: BP 107/67; PULSE 96; RESP 15
--- NOTE | 2025-10-13 17:06 | PM.OBGYDC ---
Discharge Providers ALGEBRA TUTOR Date of Admission: 10/11/25 04:28 Date of Discharge: 10/13/25 Attending Provider at Admission: Frankie Vital MD Attending Provider at Discharge: Frankie Vital MD Diagnoses at Discharge Discharge Diagnosis 1. , delivered: 2. dystocia: 3. Vacuum extractor delivery, delivered: 4. Third degree laceration of perineum, type 3b: Reason for Visit Reason for Visit: CONTRACTIONS Hospital Course Hospital Course Patient delivered healthy male and was discharged home. See Hospital chart for details. Information Peripartum Data: Delivery Method: Vaginal Physical Exam Const: COMMON NORMALS: no acute distress GENERAL APPEARANCE: comfortable Resp: COMMON NORMALS: normal respiratory effort and clear to auscultation bilaterally AUSCULTATION: clear to auscultation bilaterally GI: COMMON NORMALS: Soft to palpation and non-tender (fundus firm) PALPATION: Yes Soft to palpation Extremity: NARRATIVE EXTREMITY EXAM: no calf tenderness Urinary Catheter Management: Damian Latex: Cath Placed During This Visit: yes, but has since been removed by the nurse Reason for Continuing Indwelling Catheter: Decision to DC Catheter Urinary Catheter Date of Insertion: 10/11/25 Urinary Catheter Time of Insertion: 07:50 Date Urinary Catheter Removed: 10/11/25 Time Urinary Catheter Discontinued: 18:49 History History History 1 Term 0 0 Miscarriages/Ectopic 0 Living Children 0 Discharge Data Studies Completed and Pending Laboratory Results WBC 17.65 10^3/uL (3.29-11.43) H 10/12/25 11:19 RBC 3.29 10^6/uL (3.85-5.65) L 10/12/25 11:19 Hgb 9.20 g/dL (11.27-16.99) L 10/12/25 11:19 Hct 27.9 % (36-47) L 10/12/25 11:19 MCV 84.8 fl (85-98) L 10/12/25 11:19 MCH 28.0 pg (27-33) 10/12/25 11:19 MCHC 33.0 g/dL (30-55) 10/12/25 11:19 RDW 15.0 % (12.1-15.1) 10/12/25 11:19 Plt Count 202 10^3/cmm (157-399) 10/12/25 11:19 MPV 8.9 fL (7.4-10.4) 10/12/25 11:19 Neut % (Auto) 79.3 % 10/11/25 04:50 Lymph % (Auto) 12.3 % 10/11/25 04:50 Stephenson % (Auto) 7.4 % 10/11/25 04:50 Eos % (Auto) 0.4 % 10/11/25 04:50 Baso % (Auto) 0.2 % 10/11/25 04:50 Neut # (Auto) 8.47 10^3/uL (1.8-7.7) H 10/11/25 04:50 Lymph # (Auto) 1.3 10^3/uL (0.8-4.8) 10/11/25 04:50 Stephenson # (Auto) 0.8 10^3/uL (0.2-0.9) 10/11/25 04:50 Eos # (Auto) 0.0 10^3/uL (0.0-0.8) 10/11/25 04:50 Baso # (Auto) 0.0 10^3/uL (0.0-0.1) 10/11/25 04:50 Nucleated RBC % (auto) 0 % 10/11/25 04:50 Nucleated RBCs # 0.0 /100WBC 10/11/25 04:50 POC Glucose 85 mg/dL (70-110) 10/11/25 10:18 Blood Type A Positive 10/11/25 05:35 Rho(D) Type Rh positive 10/11/25 05:35 Antibody Screen Negative 10/11/25 05:35 Vitals Last Vital Signs Temp 98.0 F 10/13/25 09:32 Pulse 96 10/13/25 15:29 Resp 15 10/13/25 15:29 BP 107/67 10/13/25 15:29 Pulse Ox 99 10/13/25 09:32 O2 Del Method Room Air 10/13/25 09:32 Results Labs OB ([facility]): Obstetrics US 08/28/25 Blood Type A Positive 10/11/25 Antibody Screen Negative 10/11/25 Hct, (36-47) 27.9 % L 10/12/25 Hgb, (11.27-16.99) 9.20 g/dL L 10/12/25 Rho(D) Type Rh positive 10/11/25 Plt Count, (157-399) 202 10^3/cmm 10/12/25 Hep Bs Antigen, (Nonreactive) Non-reactive 04/08/25 Hepatitis C Antibody, (Nonreactive) Non-reactive 04/08/25 Rubella IgG Antibody, (0.0-10.0) 481.6 IU/mL H 04/08/25 RPR, (Nonreactive) Nonreactive 04/08/25 HIV 1&2 Ab & HIV 1 Ag, (Non-Reactiv) Non-reactive 04/08/25 TSH, (0.27-4.20) 0.58 uIU/mL 04/08/25 Free T4, (0.82-1.77) 1.21 ng/dL 02/04/24 Glucose 1 Hr 50 gm, (85-140) 152 mg/dL H 07/16/25 Gest Glucose Tolerance mg/dL 07/21/25 Ser , Semi-Qnt 795193.00 mIU/mL 03/04/25 HCG, Qual, (Negative) Positive H 03/04/25 Urine Opiates Screen, (Negative) Negative ng/mL 04/08/25 Ur Barbiturates Screen, (Negative) Negative ng/mL 04/08/25 Ur Phencyclidine Scrn, (Negative) Negative ng/mL 04/08/25 Ur Amphetamines Screen, (Negative) Negative ng/mL 04/08/25 U Benzodiazepines Scrn, (Negative) Negative ng/mL 04/08/25 Urine Cocaine Screen, (Negative) Negative ng/mL 04/08/25 U Marijuana (THC) Screen, (Negative) Negative ng/mL 04/08/25 Micro Urine Specimen 07/01/25 Pap Smear Interpret See note 04/11/24 Discharge Plan Discharge Patient Disposition: Home Condition: Stable Prescriptions: No Action (DME) Dexcom G6 Sensor Device See Rx Instructions .Route Qty: 3 3RF Rx Instructions: As directed (DME) Dexcom G6 Relocation Manager Misc See Rx Instructions .Route Qty: 1 6RF Rx Instructions: As directed (DME) Dexcom G6 Transmitter Device See Rx Instructions .Route Qty: 1 6RF Rx Instructions: As directed (DME) blood-glucose meter [Blood Glucose Monitoring] Kit See Rx Instructions .MEDSULY Qty: 1 0RF Rx Instructions: please include test strips, lancets, and alcohol wipes Check blood sugar fasting in the morning and two hours after each meal for a total of four times daily magnesium glycinate 100 mg magnesium capsule 160 mg PO DAILY Trudy Pizano liquid 27 mg PO DAILY Trudy Pizano Liquid Iron 15 ml PO DAILY Discharge Order = DC NOW: Discharge Order (Routine); Ordered 10/13/25 Ordered By: Susie Salinas Referrals: Trudy Kim, MINING ENGINEERING TECHNOLOGIST [Nurse Practitioner, ALGEBRA TUTOR] - 10/30/25 8:30 am Discharge Diet: Regular Discharge Activity: Increase activity as tolerated Patient Instructions: Depression (DC), Opioid Safety (DC), Preeclampsia and Eclampsia After Delivery (GEN), Hemorrhage (DC), OB Discharge Report, OB Food/Drug Interaction Guide, Opioid Safety, OB Home Care, OB Vaginal Deliveries - [facility], Patient Portal & [facility]ie Instructions, Abnormal Bleeding Discharge Attestations ALGEBRA TUTOR Time Spent in Discharge Care*: less than 30 min Coding Level of Care Code Acute Code for Chg Fwd Diagnoses , delivered O80 dystocia O66.9 Vacuum extractor delivery, delivered O75.9 Third degree laceration of perineum, type 3b O70.22
[2025-10-13 22:12] VITALS: BP 106/71; PULSE 83; RESP 15; TEMP 36.9; O2SAT 99
== END 2025-10-13 22:36 | disposition home or self-care (01) | DRG 542 ==
LOC: OPOB 12:41 → OBGYN 12:41
PROVIDERS: Admitting Provider Obstetrics & Gynecology; Family Provider Pediatrics Adolescent Medicine; Visit Provider Obstetrics & Gynecology
DX: O48.0 Post-term pregnancy (principal); Z3A.40 40 weeks gestation of pregnancy; O24.420 Gestational diabetes mellitus in childbirth, diet controlled; O66.0 Obstructed labor due to shoulder dystocia; O70.22 Third degree perineal laceration during delivery, IIIb; Z37.0 Single live birth; O99.42 Diseases of the circulatory system complicating childbirth; I65.01 Occlusion and stenosis of right vertebral artery
CPT/HCPCS: 36415; 36416; 51702; 59025; 59409; 82962; 85025; 85027; 86850; 86900; 96374; 99211; J0694; J2405; J2590; J2795; J7030; J7121; J9999

== ENCOUNTER 2025-11-24 17:28 | Emergency (ER) | payer BC, MEDICAID, SELFPAY ==
[2025-11-24 17:59] VITALS: BP 115/81; PULSE 94; RESP 17; TEMP 36.6; O2SAT 99; BMI 17.6
--- NOTE | 2025-11-24 18:08 | ED_ITS ---
HPI - Female Genitourinary General: Chief complaint: Urogenital-Female Stated complaint: vaginal stitches need to be checked Time Seen by Provider: 11/24/25 18:05 History of Present Illness: 20-year-old female who is 6-1/2 weeks po stpartum had a episiotomy. Delivery was at [facility] OB notes reviewed. Patient did have assistance with quick VAC at the time of delivery. Patient had repair of a 3B episiotomy. She did not had any drainage no bleeding. Related Data Home Medications ?Medication ?Instructions ?Recorded ?Confirmed Trudy Pizano 27 mg PO DAILY 08/13/2509/26 magnesium glycinate 160 mg PO DAILY 08/13/25 Trudy Pizano Liquid Iron 15 ml PO DAILY 09/09/2509/26 Previous Rx's ?Medication ?Instructions ?Recorded blood-glucose sensor (Dexcom G6 #3 ea 07/29/25 Sensor device) blood-glucose transmitter (Dexcom #1 ea 07/29/25 G6 Transmitter device) blood-glucose,team primary care physician,cont #1 ea 07/29/25 (Dexcom G6 [employer]) blood-glucose meter (Blood Glucose #1 ea 08/06/25 Monitoring kit) Allergies Allergy/AdvReac Type Severity Reaction Status Date / Time No Known Allergies Allergy Verified 11/24/25 18:04 [facility] ED PFSH: Medical History No pertinent past medical history neghx: htn,dm,thryoid,dvt/pe PCP: None Surgical History No pertinent past surgical history Family History Grandmother Breast cancer Maternal grandmother, breasts cancer, unknown type and living. Denies family history of Colon cancer Pancreatic cancer Ovarian cancer Diabetes Cancer Hypertension Uterine cancer Thyroid disease Stroke Social History Smoking and tobacco/nicotine status: never used tobacco/nicotine Physical Exam Narrative: EXAM NARRATIVE: With nurse present patient placed in dorsal lithotomy position perineum examined. There is a small amount of dehiscence at the vaginal introitus no active bleeding there is good granulation tissue present no signs of infection no drainage. At the inferior portion of the episiotomy near the rectal verge there is a area that appears to have healed by secondary intent to there is no current drainage no bleeding no erythema. Course Vital Signs: Vital signs: Vital Signs Temperature 97.8 F 11/24/25 17:59 Pulse Rate 94 11/24/25 17:59 Respiratory Rate 17 11/24/25 17:59 Blood Pressure 115/81 11/24/25 17:59 Pulse Oximetry 99 11/24/25 17:59 Oxygen Delivery Me thod Room Air 11/24/25 17:59 MDM - Female Medical Decision Making Episiotomy appears to be healing well 2 small areas that seem to be healing by secondary intent both have fresh granulation tissue there is no sign of infection. Discharge patient home recommend that she follow-up with Dr. Vital in approximately 10 to 14 days. Return if has further problems. No radiology studies performed this visit Discharge Plan Discharge Patient Disposition: Home Clinical Impression: Discomfort at episiotomy site Condition: Stable Prescriptions: No Action (DME) Dexcom G6 Sensor Device See Rx Instructions .Route Qty: 3 3RF Rx Instructions: As directed (DME) Dexcom G6 [employer] Misc See Rx Instructions .Route Qty: 1 6RF Rx Instructions: As directed (DME) Dexcom G6 Transmitter Device See Rx Instructions .Route Qty: 1 6RF Rx Instructions: As directed (DME) blood-glucose meter [Blood Glucose Monitoring] Kit See Rx Instructions .MEDSUPPLY Qty: 1 0RF Rx Instructions: please include test strips, lancets, and alcohol wipes Check blood sugar fasting in the morning and two hours after each meal for a total of four times daily magnesium glycinate 100 mg magnesium capsule 160 mg PO DAILY Trudy Jerica liquid 27 mg PO DAILY Trudy Pizano Liquid Iron 15 ml PO DAILY Discharge Orders: Discharge ED (Routine); Ordered 11/24/25 Ordered By: Jj Hatfield Referrals: Estephania Carrizales MD [Primary Care Provider, Pediatrics] Discharge Diet: Usual diet Discharge Activity: Limit activity as instructed Patient Instructions: Opioid Safety, Pain Management, Patient Portal & [place] Instructions Activity Restrictions/Additional Instructions: Thank you for choosing [facility] for your healthcare needs today. It is very important that you follow up as instructed or that you return to the [facility] Department should you have concerns or if your condition changes or worsens in any way. Emergency department visits are focused on emergent conditions, in some cases you may require further evaluation on an outpatient basis. You were seen in the emergency room for concerns of your episiotomy site. There are 2 small areas where the wound is healing by secondary intent the remainder of the wound episiotomy wound has healed well. Recommend continued pelvic rest (nothing per vagina). Follow-up with Dr. Vital in 10 to 14 days. (Please note that included in your discharge packet is information concerning opioid safety and pain management. This information is given to all patients were discharged from the ER regardless of their discharge diagnosis or the medicines they usually take or are prescribed.) Print Language: Tajik Coding Level of Care Code ED [employer] for Reg [place]
[2025-11-24 18:40] VITALS: BP 109/66; PULSE 95; O2SAT 99
== END 2025-11-24 18:42 | disposition home or self-care (01) ==
PROVIDERS: Emergency Provider Family Medicine; PCP Pediatrics Adolescent Medicine
DX: G89.18 Other acute postprocedural pain (principal)
CPT/HCPCS: 99281